=== PATIENT | male | born 1995 | race Caucasian/White ===

== ENCOUNTER 2016-05-22 23:02 | Emergency (ER) | payer OTHER ==
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
[~2016-05-22 23:02] MED LIST: CLARITIN10 M3 DOB
== END 2016-05-22 23:51 | disposition home or self-care (01) ==
LOC: SED 23:02
DX: S60.221A Contusion of right hand, initial encounter (principal); F17.210 Nicotine dependence, cigarettes, uncomplicated; Z79.899 Other long term (current) drug therapy; X58.XXXA Exposure to other specified factors, initial encounter; Y92.098 Other place in other non-institutional residence as the place of occurrence of the external cause
CPT/HCPCS: 73130; 99283